=== PATIENT | male | born 1935 | race Caucasian/White ===

== ENCOUNTER 2017-06-13 12:31 | Outpatient (CLI) | payer MEDICARE, BC | END 2017-06-13 12:32 | disposition home or self-care (01) | LOC: DI 12:31 | PROVIDERS: ATTEND Internal Medicine Cardiovascular Disease | DX: R01.1 Cardiac murmur, unspecified (principal); I20.9 Angina pectoris, unspecified; I35.0 Nonrheumatic aortic (valve) stenosis | CPT/HCPCS: 93306 ==

== ENCOUNTER 2017-10-09 07:06 | Day surgery (SDC) | payer MEDICARE, BC ==
[2017-10-09] MEDS ORDERED: ceFAZolin 2 GM/50 ML 2 GM/50 ML BAG IV ONE (07:29)
[2017-10-09] MEDS ORDERED: LACTATED RINGERS 1,000 ML IV ONE ×2 (07:53→09:30)
[2017-10-09] MEDS ORDERED: BUPIVACAINE 0.5% PF 30 ML VIAL ONE (08:14)
[2017-10-09] MEDS ORDERED: BUPIVACAINE 0.5% PF 30 ML VIAL SUBQ ONE (09:13)
[2017-10-09] MEDS ORDERED: MIDAZOLAM 2 MG/2 ML VIAL IVP ONE (09:24)
[2017-10-09] MEDS ORDERED: PROPOFOL 200 MG/20 ML VIAL IVP ONE (09:24)
[2017-10-09] MEDS ORDERED: ONDANSETRON 4 MG/2 ML VIAL IVP ONE (09:24)
[2017-10-09] MEDS ORDERED: KETOROLAC 30 MG/ML VIAL IVP ONE (09:24)
[2017-10-09] MEDS ORDERED: LIDOCAINE-MPF 2% 5 ML VIAL IM ONE (09:24)
[2017-10-09] MEDS ORDERED: ePHEDrine 50 MG/ML VIAL IVP ONE (09:24)
--- NOTE | 2017-10-09 10:24 | OPERATIVE REPORT ---
Operative Report - General Procedure Date: 10/09/17 Planned Procedure: RIGHT inguinal herniorrhaphy Pre-Op Diagnosis: RIGHT inguinal hernia Procedure Performed: RIGHT indirect inguinal herniorrhaphy with mesh Post Op Diagnosis: RIGHT indirect inguinal hernia - Procedure Note Primary Surgeon: Jemal Prieto MD Anesthesia Provider: Hansel Weston CRNA Anesthesia Technique: General LMA, Local (30 mL 1/2% marcaine) IV Fluids (mL): 800 Estimated Blood Loss (mL): 5 Complications: None. - Other Other Information/Narrative: OPERATIVE DESCRIPTION/REPORT: After verbal and written informed consent was obtained detailing the risks of infection, bleeding requiring transfusion with its risks, nerve injury, and , and after I met with the patient confirming the surgery and the site of the surgery and after initialing the site of the surgery with a surgical marker , the patient was brought to the operative suite and placed supine on the operating table. Great care was taken to avoid pressure points to prevent pressure necrosis or nerve injury. Monitoring devices were applied along with TEDs and pneumatic compressive stockings (to prevent DVT). The patient received preoperative antibiotics for surgical prophylaxis. Hansel Weston sedated and anesthetized the patient for the entire procedure. The patient was prepped and draped in the usual sterile manner. With the patient draped my initials were clearly visible. A "time in" then confirmed that the patient was identified with 3 identifiers (name, date and medical record number), the history and physical was in the chart, the signed consent confirming the procedure was in the chart, the patient was in the correct position, the aforementioned prophylactic measures were in place or given, we had the correct personnel and equipment to complete the procedure and that anesthesia, surgery and nursing were given an opportunity to express any concerns. With the agreement of everyone in the room, we proceeded with the operation. A standard inguinal incision was made and dissection was carried down to the external oblique aponeurosis using a combination of Metzenbaum scissors and Bovie electrocautery. The external oblique aponeurosis was cleared of overlying adherent tissue, and the external ring was delineated. The external oblique was the incised with a scalpel and this incision was carried out to the external ring using Metzenbaum scissors. Having exposed the inguinal canal, the cord structures were from the canal using blunt dissection, and a Iker drain was placed around the cord structures at the level of the pubic tubercle. This Iker drain was then used to retract the cord structures as needed. Adherent cremasteric muscle was dissected free from the cord using Bovie electrocautery. The cord was then explored using a combination of sharp and blunt dissection, and the sac was found anteromedially to the cord structures. The sac was dissected free from the cord structures using a combination of blunt dissection and Bovie electrocautery. Once preperitoneal fat was encountered, the dissection stopped and the sac was high ligated with a 2-0 PDS, transected, the stump cauterized and allowed to retract back into the abdominal cavity and a largeCovidien plug (Ref# [id number], Lot#[id number], use date 2022-07-11) inserted into the internal ring. The plug was secured to the internal ring by two interrupted 2-0 PDS sutures. The Bard Perfix enlay patch was then placed on the floor of the inguinal canal and secured in place using interrupted 0 PDS sutures to the conjoined tendon superiorly, pubic tubercle medially, and shelving edge inferiorly. By reinforcing the floor with the enlay patch, a new internal ring was thus formed. The Howe drain was removed. The wound was then irrigated using sterile saline, and hemostasis was obtained using Bovie electrocautery. The incision in the external oblique was approximated using a 3-0 Vicryl in a running fashion , thus reforming the external ring. The fascia and skin was then injected with the 1/2% marcaine for penitentiary pain control. The skin incision was approximated with 4-0 Monocryl in a subcuticular fashion. The skin was prepped with benzoin and steristrips were applied. At this point a time out was performed that confirmed that all the counts were correct, the procedure that was performed, the blood loss, the IV fluids administered, and the patients condition. A dressing was then applied. Gentle downward traction ensured that the testes were well seated in the scrotum. Having tolerated the procedure well , the patient was taken to short stay in good and stable condition.
[2017-10-09] MEDS ORDERED: oxyCOD/ACETAMIN 5 MG/325 MG TABLET PO ONE (11:28)
[2017-10-09 12:11] VITALS: BP 119/90
== END 2017-10-09 07:07 | disposition home or self-care (01) ==
LOC: SDS 07:06
PROVIDERS: ATTEND Surgery
PROC: 0YU50JZ Supplement Right Inguinal Region with Synthetic Substitute, Open Approach (ICD-10-PCS; principal; 2017-10-09 08:30)
DX: K40.90 Unilateral inguinal hernia, without obstruction or gangrene, not specified as recurrent (principal); I10 Essential (primary) hypertension; E78.5 Hyperlipidemia, unspecified; J43.9 Emphysema, unspecified; F17.210 Nicotine dependence, cigarettes, uncomplicated; Z79.82 Long term (current) use of aspirin
CPT/HCPCS: 49505; A9270; C1781; J0690; J7120

== ENCOUNTER 2018-07-19 13:45 | Outpatient (CLI) | payer MEDICARE, BC ==
[2018-07-19] MEDS ORDERED: IOVERSOL 320 100 ML VIAL IVP ONE ×2 (13:56→19:21)
[2018-07-19] MEDS ORDERED: IOVERSOL 320 50 ML VIAL ONE (13:56)
[2018-07-19] MEDS ORDERED: IOVERSOL 320 50 ML VIAL PO ONE (19:21)
--- NOTE | 2018-07-20 08:08 | CT Report ---
Reason: CANCER OF GLANS PENIS Procedure Date: 07/19/2018 Accession Number: [id number] / [id number] Procedure: CT - Abdomen/Pelvis W/ CPT Code: FULL RESULT: EXAM: CT ABDOMEN AND PELVIS EXAM DATE: 07/19/2018 03:26 PM. CLINICAL HISTORY: Penile cancer of glans COMPARISONS: CT 11/17/2010. TECHNIQUE: Routine helical CT imaging was performed through the abdomen and pelvis. IV contrast: opti 320 100mL. Enteric contrast: No. Reconstructions: Coronal and sagittal. In accordance with CT protocol optimization, one or more of the following dose reduction techniques were utilized for this exam: automated exposure control, adjustment of mA and/or KV based on patient size, or use of iterative reconstructive technique. FINDINGS: Lung Bases: Pleural and parenchymal scarring with subsegmental left lower lobe posterior medial atelectasis. No pleural effusion. No lung nodules. A few small cystic emphysematous spaces. Heart size upper limits normal with calcified atherosclerosis. Right anterior cardiophrenic lymph node 8 x 5 mm series 3 image 12, slightly increased previously 6 x 4 mm. No pathologic sized haydee enlargement. Liver: Small stable low-attenuation foci again seen in the liver including 5 lateral subcapsular 8 mm low-attenuation focus series 3 image 25, unchanged. No new focus or finding suspicious for interval metastasis. Otherwise unremarkable. Gallbladder/Bile Ducts: Partially contracted gallbladder. Otherwise unremarkable. Bile duct is nondilated. Spleen: Punctate calcifications. Otherwise unremarkable Pancreas: Normal. Adrenal Glands: Unremarkable Kidneys: Bilateral kidney cysts, largest on the left again seen. Single largest left cyst within partial rim calcification measures 7.5 cm diameter series 3 image 42. This is decreased in size previously measuring up to 9.5 cm diameter. No complex cystic mass suspicious for neoplasm. No solid mass, stone or hydronephrosis. Otherwise unremarkable. Ureters are unremarkable. Peritoneal Cavity/Bowel: Normal. No free fluid, free air or adenopathy. No masses or acute inflammatory process. Pelvic Organs: Urinary bladder, prostate and seminal vesicles are unremarkable. No adenopathy. No free fluid. No additional mass. Vasculature: Calcified atherosclerosis. 5 cm long segment of fusiform infrarenal abdominal aortic aneurysm measuring 4 x 4 cm diameter. Aortic caliber at the bifurcation 2.4 x 2.5 cm. No additional aneurysm. No occlusion. Otherwise unremarkable. Bones: Mild generalized leftward convex curve in the thoracolumbar spine with spondylotic changes. No bone lesions suspicious for malignancy. No acute abnormality. Other: Small fat-containing left inguinal hernia. No inguinal adenopathy. No additional mass. Visualized portion of the penis appears unremarkable. IMPRESSION: 1. No acute abnormality seen on CT scan of abdomen and pelvis. No significant interval change compared to prior study 11/17/2010. No evidence for interval metastasis. 2. Infrarenal abdominal aortic aneurysm 4 cm diameter. No evidence for leak or rupture. 3. Kidney cysts and probable stable liver cysts. 4. Tiny fat-containing left inguinal hernia. 5. Examination otherwise as detailed above. RADIA
== END 2018-07-19 13:46 | disposition home or self-care (01) ==
LOC: DI 13:45
PROVIDERS: ATTEND Urology
DX: C60.1 Malignant neoplasm of glans penis (principal); I71.4 Abdominal aortic aneurysm, without rupture; Q61.02 Congenital multiple renal cysts; K40.90 Unilateral inguinal hernia, without obstruction or gangrene, not specified as recurrent
CPT/HCPCS: 74177; Q9967

== ENCOUNTER 2018-08-16 08:52 | Outpatient (CLI) | payer MEDICARE, BC | END 2018-08-16 08:53 | disposition home or self-care (01) | LOC: DI 08:52 | PROVIDERS: ATTEND Internal Medicine Cardiovascular Disease | DX: I35.0 Nonrheumatic aortic (valve) stenosis (principal); I25.2 Old myocardial infarction; I73.9 Peripheral vascular disease, unspecified; I51.7 Cardiomegaly | CPT/HCPCS: 93306 ==

== ENCOUNTER 2020-02-07 09:02 | Outpatient (CLI) | payer MEDICARE, BC | END 2020-02-07 09:03 | disposition home or self-care (01) | LOC: RT 09:02 | PROVIDERS: ATTEND Family Medicine | DX: R05 Cough (principal) | CPT/HCPCS: 94010 ==

== ENCOUNTER 2020-03-04 11:16 | Outpatient (CLI) | payer MEDICARE, BC ==
[2020-03-04 11:41] LABS: CALCIUM 9.4 mg/dL (8.5-10.3); CREATININE 1.1 mg/dL (0.6-1.2)
[2020-03-04] MEDS ORDERED: IOVERSOL 320 100 ML VIAL IVP ONE ×2 (11:56→13:41)
--- NOTE | 2020-03-04 14:11 | CT Report ---
PROCEDURE: CHEST W INDICATIONS: RT LUNG OPACITY ON 02/06 CXR CONTRAST: IV CONTRAST: Optiray 320 ml: 100 PO CONTRAST: *NO PO CONTRAST TECHNIQUE: After the administration of intravenous contrast, 5 mm thick sections acquired from the pulmonary api herminio to the posterior costophrenic angles. 7 mm thick coronal MIP reformats were acquired. For radia tion dose reduction, the following was used: automated exposure control, adjustment of mA and/or kV according to patient size. COMPARISON: Chest 2 views dated 02/07/2020. FINDINGS: Image quality: Excellent. Lungs and pleura: Severe biapical centrilobular emphysema, right greater than left. Spiculated pleura l-based density centered in the lingula, adjacent to the peripheral pleura and major fissure, possibl y representing rounded atelectasis versus spiculated bronchogenic carcinoma. It measures 1.6 cm. Refe rence image 174/4 (axial) and image 12/7 (sagittal reformats). No pleural effusions or pneumothorax. Central and peripheral airways are patent and normal in caliber. Mediastinum: Heart size is normal. No pericardial effusion. Dense coronary artery calcifications. N o mediastinal or hilar adenopathy by size criteria. Shotty mediastinal lymph nodes. Thoracic aorta a nd central pulmonary arteries are normal in size. Esophagus is normal in caliber. No hiatal hernia. Bones and chest wall: No suspicious bony lesions. No vertebral body compression fractures. No axil maryana or supraclavicular adenopathy by size criteria. Thyroid gland is unremarkable as visualized. Abdomen: Visualized upper abdominal solid organs appear normal. Upper abdominal bowel loops are nor mal in caliber. IMPRESSION: 1. Severe biapical centrilobular emphysema. 2. 1.6 cm maximum diameter spiculated pleural-based left lung density. Consider development of rounde d atelectasis versus spiculated bronchogenic carcinoma. Comment: Recommend further workup with PET/CT to differentiate between rounded atelectasis and malign elfego. Reviewed by: Sarabjit Nye MD on 03/04/2020 2:10 PM PDT Approved by: Sarabjit Nye MD on 03/04/2020 2:10 PM PDT Station ID: [id number]
== END 2020-03-04 11:17 | disposition home or self-care (01) ==
LOC: LAB 11:16 → DI 11:17
PROVIDERS: ATTEND Physician Assistant Medical
DX: J98.4 Other disorders of lung (principal); J43.2 Centrilobular emphysema
CPT/HCPCS: 36415; 71260; 80048; Q9967

== ENCOUNTER 2021-07-14 10:34 | Outpatient (CLI) | payer MEDICARE, BC | END 2021-07-14 10:35 | disposition critical access hospital (66) | LOC: EMS 10:34 | DX: R55 Syncope and collapse (principal); R53.1 Weakness; R42 Dizziness and giddiness; R11.0 Nausea | CPT/HCPCS: A0425; A0427 ==

== ENCOUNTER 2021-07-14 10:49 | Emergency (ER) | payer MEDICARE, BC ==
--- NOTE | 2021-07-14 11:45 | ED Physician Documentation ---
History of Present Illness - Stated complaint Stated Complaint: NEAR SYNCOPE - Chief complaint Chief Complaint: Neuro - Additonal information Additional information: 86-year-old male presents emergency department for evaluation of a near syncopal episode. He was out to [facility] with friends and suddenly began to feel nauseated and lightheaded. He placed his head down on the table. EMS was summoned. He is described as pale and diaphoretic at the scene. He did not have a lapse in consciousness. For EMS he was noted to be mildly orthostatic with a change in heart rate of 25 points with position change. His blood glucose was normal. Patient reports a similar event last week in which he got up in the middle of the night to use the restroom. He began to feel suddenly faint and lightheaded. He sat down before he could pass out. He denies having any sensation of tunnel vision or loss of vision during these episodes. Patient's past medical history is most significant for coronary artery disease, hypertension as well as aortic valve replacement. He had 3 stents placed at [facility] in the spring 2020. This was followed by a bovine valve replacement. Patient takes plavix and asa; denies novel antic oagulant use He denies any recent cough, cold, congestion, fevers. He denies that he was having any chest pain or shortness of air prior to this event. No recent melena or abdominal pain. No history of presyncope or syncope in the past. Patient is not vaccinated for COVID 19 meds: asa 81mg qd atorvastatin 80 mg qd flomax 0.4mg qd plavic 75 mg qd metoprolol 25 mg qd losartan 25 mg qd protonix 40 mg qd Review of Systems Constitutional: denies: Fever, Chills Eyes: denies: Loss of vision Ears: reports: Reviewed and negative Nose: reports: Reviewed and negative Throat: reports: Reviewed and negative Cardiac: denies: Chest pain / pressure, Palpitations, Pedal edema, Calf pain Respiratory: denies: Dyspnea, Cough GI: reports: Nausea. denies: Abdominal Pain, Vomiting, Constipation, Diarrhea : reports: Reviewed and negative Skin: reports: Reviewed and negative Musculoskeletal: reports: Reviewed and negative Neurologic: reports: Near syncope. denies: Generalized weakness, Focal weakness, Numbness, Syncope, Confused, Altered mental status, Headache, Head injury, LOC Psychiatric: reports: Reviewed and negative PD PAST MEDICAL HISTORY - Past Medical History Cardiovascular: Hypertension, High cholesterol, Coronary artery disease, [place], Murmur Respiratory: Emphysema, Shortness of breath, Other Endocrine/Autoimmune: None GI: None : None HEENT: None Psych: None Musculoskeletal: Other Derm: None - Past Surgical History Ortho: Knee replacement, Shoulder arthroplasty, Arthroscopic surgery, Spine surgery, Other Cardiovascular: Coronary stent, Cardiac catheterization HEENT: Cataracts, Other Derm: Skin cancer surgery - Present Medications Home Medications: Ambulatory Orders Medication Instructions Recorded Confirmed Aspirin [Adult Aspirin] 81 mg PO DAILY 10/09/17 10/09/17 Atorvastatin [Lipitor] 20 mg PO DAILY 10/09/17 10/09/17 Docusate Sodium [Dulcolax Stool 40 mg PO BID 10/09/17 10/09/17 Softener] Varenicline Tartrate [Chantix] 1 mg PO BID 10/09/17 10/09/17 predniSONE [Prednisone] 5 mg PO DAILY 10/09/17 10/09/17 - Allergies Allergies/Adverse Reactions: Allergies Allergy/AdvReac Type Severity Reaction Status Date / Time ciprofloxacin [From Cipro] Allergy Rash Verified 07/14/21 11:06 PD ED PE EXPANDED - General General: Alert, No acute distress, Well developed/nourished - Cardiac Cardiac: Regular Rate, Murmur Present, Radial strong equal, Pedal strong equal, Cap refill < 2 sec - Respiratory Respiratory: Clear to ausultation leon. No: Distress, Labored - Abdomen Abdomen: Normal Bowel sounds. No: Tender to palpation - Derm Derm: Normal color, Warm and dry. No: Rash - Extremities Extremities: Normal. No: Deformity, Tenderness - Neuro Neuro: Alert and Oriented X 3, CNII-XII intact - GCS Eye Opening: Spontaneous Motor: Obeys Commands Verbal: Oriented Total: 15 Results - Vitals Vitals: Vital Signs - 24 hr 07/14/21 07/14/21 11:01 12:19 Temperature 36.6 C Heart Rate 59 L 58 L Heart Rate [ 65 Sitting] Heart Rate [ 66 Standing] Heart Rate [ 60 Supine] Respiratory 13 17 Rate Blood Pressure 129/68 114/62 Blood Pressure 128/70 [Sitting] Blood Pressure 114/62 [Standing] Blood Pressure 129/72 [Supine] O2 Saturation 100 100 Oxygen O2 Source Room air - EKG (time done) 1116 Rate: Rate (enter#) (60) Rhythm: NSR [place]: LAD, Other (IVCD) Intervals: Prolonged NH, Prolonged QT QRS: LVH Ischemia: Other (ST sec LVH) Compare to prior EKG: Old EKG unavailable Computer interpretation: Agree with computer - Labs Labs: Laboratory Tests 07/14/21 07/14/21 07/14/21 11:40 11:40 11:40 WBC 6.1 RBC 3.97 L Hgb 12.9 L Hct 38.9 L MCV 98.0 H MCH 32.5 H MCHC 33.2 RDW 12.9 Plt Count 148 MPV 9.4 Neut # (Auto) 4.8 Lymph # (Auto) 0.7 L [place] # (Auto) 0.4 Eos # (Auto) 0.1 Baso # (Auto) 0.0 Absolute Nucleated RBC 0.00 Nucleated RBC % 0.0 PT INR Sodium 136 Potassium 4.9 Chloride 103 Carbon Dioxide 25 Anion Gap 8.0 BUN 36 H Creatinine 1.5 H Estimated GFR (MDRD) 44 L Glucose 95 Calcium 8.5 Phosphorus Magnesium Total Bilirubin 0.9 AST 16 ALT 17 Alkaline Phosphatase 102 Troponin I High Sens 10.2 B-Natriuretic Peptide Total Protein 6.5 L Albumin 3.8 Globulin 2.7 Albumin/Globulin Ratio 1.4 Lipase 28 07/14/21 07/14/21 07/14/21 11:40 11:40 11:40 WBC RBC Hgb Hct MCV MCH MCHC RDW Plt Count MPV Neut # (Auto) Lymph # (Auto) [place] # (Auto) Eos # (Auto) Baso # (Auto) Absolute Nucleated RBC Nucleated RBC % PT 12.2 INR 1.1 Sodium Potassium Chloride Carbon Dioxide Anion Gap BUN Creatinine Estimated GFR (MDRD) Glucose Calcium Phosphorus 2.8 Magnesium 2.2 Total Bilirubin AST ALT Alkaline Phosphatase Troponin I High Sens B-Natriuretic Peptide 119 H Total Protein Albumin Globulin Albumin/Globulin Ratio Lipase - Rads (name of study) CXR Radiology: Final report received (no acute cardiopulmonary pathology) PD MEDICAL DECISION MAKING - ED course Complexity details: reviewed results, re-evaluated patient, considered differential, d/w patient ED course: 86-year-old male presents emergency department for evaluation of a near syncopal episode that occurred this morning while eating brunch. Developed sudden onset nausea and felt lightheaded and faint. Put his head on the table. EMS arrived found him pale and diaphoretic. Here in the emergency department screening labs were obtained. He is not anemic. His electrolytes were without acute worrisome findings though he is likely mildly dehydrated with a BUN of 36 and creatinine 1.2. He was repleted with 1 L of IV fluids. EKG is nonischemic though he does have LAD and intervention IVCD. High-sensiti vity troponin was negative. BNP not elevated. Patient did have orthostatic vital signs obtained here which were negative. While here in the emergency department he has been without ectopy and feels improved. I did offer the patient observation admission for near syncope and to obtain an echocardiogram but he declined this. Thus I did speak with his radio communications mechanician Dr. Tavarez who will arrange for f/u with hsi office next wek planning for echo and event monitor. Emergent return precautions discussed Departure - Departure Disposition: 01 Home, Self Care Clinical Impression: Near syncope Condition: Stable Record reviewed to determine appropriate education?: Yes Instructions: ED Near Syncope Unkn Follow-Up: Cipriano Kenyon MD [Provider Admit Priv/Credential] - Comments: Vic worrell were seen in the emergency department today for a near fainting episode. This is your second 1 in a week. Your screening chest x-ray and labs did not reveal any obvious worrisome findings. Your blood pressures and heart rate were the same and all of your tested positions. It is important that you continue to follow-up with Dr. Kenyon as an outpatient. His office will be calling you. They are planning to have you come into the office to get an event monitor placed as well as obtain an echocardiogram. If at any point you develop chest pain, have fevers, have worsening symptoms you are to return immediately to the ER for a second evaluation.
[2021-07-14 11:46] LABS: BASOPHILS % (AUTO) 0.3 %; EOSINOPHILS # (AUTO) 0.1 10^3/uL (0.0-0.7); EOSINOPHILS % (AUTO) 2.3 %; HCT - HEMATOCRIT 38.9 % (42.0-52.0); HGB - HEMOGLOBIN 12.9 g/dL (14.0-18.0); LYMPHOCYTES # (AUTO) 0.7 10^3/uL (1.5-3.5); LYMPHOCYTES % (AUTO) 11.8 %; MEAN CORPUSCULAR HEMOGLOBIN 32.5 pg (27.0-31.0); MEAN CORPUSCULAR HGB CONC 33.2 g/dL (32.0-36.0); MEAN PLATELET VOLUME 9.4 fL (7.4-11.4); MONOCYTES # (AUTO) 0.4 10^3/uL (0.0-1.0); MONOCYTES % (AUTO) 6.9 %; NEUTROPHILS # (AUTO) 4.8 10^3/uL (1.5-6.6); NEUTROPHILS % (AUTO) 77.9 %; PLT - PLATELET COUNT 148 10^3/uL (130-450); RED BLOOD COUNT 3.97 10^6/uL (4.70-6.10); RED CELL DISTRIBUTION WIDTH 12.9 % (12.0-15.0); WHITE BLOOD COUNT 6.1 x10^3/uL (4.8-10.8)
[2021-07-14 11:54] LABS: INR 1.1 (0.8-1.2); PT - PROTHROMBIN TIME 12.2 secs (9.9-12.6)
[2021-07-14 12:02] LABS: ALBUMIN 3.8 g/dL (3.2-5.5); ALBUMIN/GLOBULIN RATIO 1.4 (1.0-2.2); BILIRUBIN,TOTAL 0.9 mg/dL (0.2-1.0); CALCIUM 8.5 mg/dL (8.5-10.3); CREATININE 1.5 mg/dL (0.6-1.2); POTASSIUM 4.9 mmol/L (3.5-5.0); TOTAL PROTEIN 6.5 g/dL (6.7-8.2)
[2021-07-14] MEDS ORDERED: SODIUM CHLORIDE 0.9% 1,000 ML IV STA (12:03)
--- NOTE | 2021-07-14 12:05 | XRAY Report ---
PROCEDURE: Chest 1 View X-Ray INDICATIONS: Chest Pain TECHNIQUE: One view of the chest was acquired. COMPARISON: 02/07/2020 FINDINGS: Surgical changes and devices: None. Lungs and pleura: No pleural effusions or pneumothorax. Lungs are clear. Mediastinum: Mediastinal contours appear normal. Heart size is normal. Bones and chest wall: No suspicious bony lesions. Overlying soft tissues appear unremarkable. IMPRESSION: No acute cardiopulmonary pathology. Reviewed by: Aime George MD on 07/14/2021 12:04 PM PST Approved by: Aime George MD on 07/14/2021 12:04 PM [facility] Station ID: [id number]
[2021-07-14 12:14] LABS: MAGNESIUM 2.2 mg/dL (1.7-2.8); PHOSPHORUS 2.8 mg/dL (2.5-4.6)
[2021-07-14 12:22] VITALS: BP 114/62
== END 2021-07-14 14:07 | disposition home or self-care (01) ==
LOC: EDUNIT# → ED 10:49
DX: R55 Syncope and collapse (principal); Z95.5 Presence of coronary angioplasty implant and graft; I10 Essential (primary) hypertension; Z95.2 Presence of prosthetic heart valve
CPT/HCPCS: 36415; 80053; 83690; 83735; 83880; 84100; 84484; 85025; 85610; 93005; 96360; 96361; 99284

== ENCOUNTER 2021-08-19 11:39 | Outpatient (CLI) | payer MEDICARE, BC | END 2021-08-19 11:40 | disposition home or self-care (01) | LOC: DI 11:39 | PROVIDERS: ATTEND Internal Medicine Cardiovascular Disease | DX: R55 Syncope and collapse (principal); Z95.2 Presence of prosthetic heart valve; I51.7 Cardiomegaly | CPT/HCPCS: 93306 ==

== ENCOUNTER 2022-07-27 09:28 | Outpatient (CLI) | payer MEDICARE, BC | END 2022-07-27 09:29 | disposition home or self-care (01) | LOC: LAB 09:28 | PROVIDERS: ATTEND Surgery | DX: Z01.812 Encounter for preprocedural laboratory examination (principal); K40.90 Unilateral inguinal hernia, without obstruction or gangrene, not specified as recurrent; Z20.822 Contact with and (suspected) exposure to COVID-19 ==

== ENCOUNTER 2022-07-28 08:50 | Day surgery (SDC) | payer MEDICARE, BC ==
[~2022-07-28 08:50] MED LIST: CEFAZOLIN 2G/50ML 0.9% NS 2 GM/50 ML BAG IV ONE
[2022-07-28] MEDS ORDERED: LACTATED RINGERS 1,000 ML IV ONE (08:52)
[2022-07-28] MEDS ORDERED: LIDOCAINE-MPF 1% 30 ML VIAL ONE (09:00)
[2022-07-28] MEDS ORDERED: BUPIVACAINE 0.5% PF 30 ML VIAL ONE (09:50)
[2022-07-28] MEDS ORDERED: BUPIVACAINE 0.5% PF 30 ML VIAL INFIL ONE (09:53)
--- NOTE | 2022-07-28 10:07 | ANESTHESIA ---
Pre-Anesthesia VS, & Labs - Diagnosis left inguinal hernia - Procedure left inguinal hernia repair Vital Signs: Temp Pulse Resp BP Pulse Ox O2 Flow Rate 37 C 93 18 121/72 94 07/28/22 09:03 07/28/22 09:03 07/28/22 09:03 07/28/22 09:03 07/28/22 09:03 Height: 6 ft Weight (kg): 80 kg Body Mass Index: 23.9 BMI Classification: Normal - NPO >8 hours Home Medications and Allergies Home Medications: Ambulatory Orders Losartan Potassium 25 mg PO DAILY 07/27/22 Pantoprazole [Protonix] 40 mg PO DAILY 07/27/22 Tamsulosin HCl [Flomax] 0.4 mg PO DAILY 07/27/22 polyethylene glycoL 3350 [Miralax] 17 gm PO DAILY 07/27/22 Aspirin [Adult Aspirin] 81 mg PO DAILY 10/09/17 Atorvastatin [Lipitor] 20 mg PO DAILY 10/09/17 Losartan Potassium 25 mg PO DAILY 07/27/22 Pantoprazole [Protonix] 40 mg PO DAILY 07/27/22 Tamsulosin HCl [Flomax] 0.4 mg PO DAILY 07/27/22 polyethylene glycoL 3350 [Miralax] 17 gm PO DAILY 07/27/22 Allergies/Adverse Reactions: Allergies Allergy/AdvReac Type Severity Reaction Status Date / Time ciprofloxacin [From Cipro] Allergy Rash Verified 07/14/21 11:06 Anes History & Medical History - Anesthetic History Anesthesia Complications: reports: No previous complications - Medical History Cardiovascular: reports: Hypertension, High cholesterol, Coronary artery disease (stents), Peripheral Vascular Disease (AAA), [place], Murmur, Valve disorder (TVAR) Pulmonary: reports: Emphysema, Shortness of breath, Other Gastrointestinal: reports: None Urinary: reports: None Neuro: reports: None Musculoskeletal: reports: Osteoarthritis Endocrine/Autoimmune: reports: None Skin: reports: None Smoking Status: Current every day smoker (1 pack per day) Psychosocial: reports: No issues indicated History of Cancer?: No - Surgical History General: reports: Other Eyes Ears Nose Throat (EENT): reports: Cataracts, Other Cardiothoracic: reports: Coronary stent, Cardiac catheterization Orthopedic: reports: Knee replacement, Shoulder arthroplasty, Arthroscopic surgery, Spine surgery, Other Dermatologic: reports: Skin cancer surgery Exam General: Alert, Oriented x3, Cooperative, No acute distress Dental: WNL Mouth Openin Fingerbreadth Neck Mobility: Normal Mallampati classification: II Thyromental Distance: 4-6 cm Mental/Cognitive Status: Alert/Oriented X3, Normal for patient Plan Anesthesia Type: General Consent for Procedure(s) Verified and Reviewed: Yes Code Status: Attempt Resuscitation ASA classification: 3-Severe systemic disease Is this case an emergency?: No
[2022-07-28] MEDS ORDERED: fentaNYL 100 MCG/2 ML VIAL IVP PRN (10:11)
[2022-07-28] MEDS ORDERED: NALOXONE 0.4 MG/ML VIAL IVP PRN (10:11)
[2022-07-28] MEDS ORDERED: MORPHINE 2 MG/ML CARPUJECT IVP PRN (10:11)
[2022-07-28] MEDS ORDERED: ONDANSETRON 4 MG/2 ML VIAL IVP PRN ×2 (10:11→12:21)
[2022-07-28] MEDS ORDERED: HYDROmorphone 0.5 MG/0.5 ML SYRINGE IVP PRN ×2 (10:11→12:21)
[2022-07-28] MEDS ORDERED: ATROPINE ABBOJECT 1 MG/10 ML SYRINGE IVP PRN (10:11)
[2022-07-28] MEDS ORDERED: fentaNYL 100 MCG/2 ML VIAL ONE (10:19)
[2022-07-28] MEDS ORDERED: PROPOFOL 200 MG/20 ML VIAL IVP ONE (10:19)
[2022-07-28] MEDS ORDERED: LACTATED RINGERS 1,000 ML IV SCH (11:00)
[2022-07-28] MEDS ORDERED: DEXAMETHASONE 4 MG/ML VIAL ONE (12:05)
[2022-07-28] MEDS ORDERED: ONDANSETRON 4 MG/2 ML VIAL ONE ×2 (12:05→12:06)
[2022-07-28] MEDS ORDERED: HYDROmorphone 1 MG/ML CARPUJECT ONE (12:05)
[2022-07-28] MEDS ORDERED: LACTATED RINGERS 300 ML IV ONE (12:15)
--- NOTE | 2022-07-28 12:18 | OPERATIVE REPORT ---
Operative Report - General Procedure Date: 07/28/22 Planned Procedure: Recurrent left inguinal herniorrhaphy Pre-Op Diagnosis: Recurrent left inguinal hernia Procedure Performed: Recurrent left indirect inguinal herniorrhaphy and excision cord lipoma Post Op Diagnosis: Recurrence of left indirect inguinal hernia, cord lipoma - Procedure Note Primary Surgeon: Jemal Prieto MD Anesthesia Provider: Regino Blood CRNA Anesthesia Technique: General LMA, Local (30 mL of half percent Marcaine) IV Fluids (mL): 1,700 Estimated Blood Loss (mL): 5 Drain/Tube Type: Other (None.) Indications: Symptomatic recurrent left inguinal hernia Findings: Left indirect inguinal hernia with some scarring, large cord lipoma Complications: Noner. - Other Other Information/Narrative: After verbal and written informed consent was obtained detailing the operation, the alternatives the operation including no operation, risks of infection, bleeding requiring transfusion with its risks, nerve injury, and and after I met with the patient confirming the surgery and the site of surgery, the patient was brought to the operative suite and placed supine on the operating table. Great care was taken to avoid pressure points to prevent pressure necrosis or nerve injury. Monitoring devices were applied along with TEDs and pneumatic compression stockings (to prevent DVT). The patient received preoperative antibiotics for surgical prophylaxis. Regino Blood CRNA sedated and anesthetized the patient for the entire procedure. The patient was prepped and draped in the usual sterile manner. With the patient draped my initials were clearly visible. A "time in" then confirmed that the patient was identified with 3 identifiers (name, date, and medical record number), the history and physical was updated and in the chart, the signed consent confirming the procedure was in the chart, the patient was in the correct position, the aforementioned prophylactic measures were in place or given, we had the correct personnel and equipment to complete the procedure and that anesthesia and the surgical team were given an opportunity to express any concerns. With the agreement of everyone in the room we proceeded with the operation. A standard inguinal incision was made and dissection was carried down to the external oblique aponeurosis using a combination of Metzenbaum scissors and Bovie electrocautery. The external oblique aponeurosis was cleared of overlying adherent tissue, and the external ring was delineated. The external oblique was incised with a scalpel and this incision was carried down to the external ring using Metzenbaum scissors. Care was taken not to injure the ilioinguinal nerve. Having expose the inguinal canal, the cord structures were from the canal using blunt dissection and a Hebron drain was placed around the cord structures at the level of the pubic tubercle. This Hebron drain was then used to retract the cord structures as needed. Adherent cremasteric muscle was dissected free from the cord using Bovie electrocautery. The cord was then explored using a combination of sharp and blunt dissection, and an indirect sac was found. The sac was then dissected back to the internal ring and high ligated with a 3-0 Vicryl suture. This was then transected the stump cauterized and allowed to retract back into the abdomen. A PerFix plug (Reference #[id number], lot number [id number], use by 2026-11-05) was then inserted into the internal ring and secured to the edge of the internal ring using a 2-0 PDS. Dissection along the cord structures found a large cord lipoma that was dissected back to the internal ring, ligated with 3-0 Vicryl, transected, and the stump cauterized and allowed to retract back into the abdomen. The PerFix onlay patch was then secured to the pubic tubercle with a 2 0-PDS U stitch. The mesh was then secured to the conjoined tendon superiorly using interrupted 2-0 PDS sutures and secured to the shelving edge of Poupart's ligament inferiorly using interrupted 2-0 PDS sutures. The mesh was secured around the cord structures loosely with a 2-0 PDS suture thus creating a new internal ring. The Hebron drain was then removed. Meticulous hemostasis was obtained using Bovie electrocautery. The wound was then injected superficially and deep using 30 mL of half percent Marcaine. The incision the external oblique was approximated using 3-0 Vicryl in a running fashion thus reforming the external ring. The skin incision was approximated with 4-0 Monocryl in a subcuticular fashion. The skin was cleaned of its prep and Dermabond was applied. At this point a timeout was performed that confirmed that all counts were correct x2, the procedure that was performed, the blood loss, the IV fluids administered, the patient's condition, and any concerns of the operating team had. Having tolerated the procedure well, the patient was taken recovery room in good and stable condition. Gentle downward traction ensured the testes were well seated in the scrotum. The plan is for outpatient discharge when the patient is adequately recovered. CPT 91298 inguinal herniorrhaphy CPT 47094 excision cord lipoma This document was created in part using voice recognition technology. Because of the inherent limitations of the system, occasional same sounding word substitutions and grammatical errors do occur and persist despite proofreading. Please read this document for content.
[2022-07-28] MEDS ORDERED: HYDROcod/ACETAM 5/325 MG TABLET PO PRN (12:21)
--- NOTE | 2022-07-28 12:53 | ANESTHESIA POST OP EVALUATION ---
Anesthesia Post Eval - Post Anesthesia Eval Vitals: Last Vital Signs Temp 36.3 C L 07/28/22 12:34 Pulse 65 07/28/22 12:34 Resp 12 07/28/22 12:34 BP 134/69 H 07/28/22 12:34 Pulse Ox 94 07/28/22 12:34 O2 Flow Rate CV Function Including HR & BP: Stable Pain Control: Satisfactory Nausea & Vomiting: Negative Mental Status: Baseline Respiratory Status: Airway Patent Hydration Status: Satisfactory Anesthesia Complications: None
[2022-07-28 12:54] VITALS: BP 137/68
== END 2022-07-28 08:51 | disposition home or self-care (01) ==
LOC: SDS 08:50
PROVIDERS: ATTEND Surgery
PROC: 0VBG0ZZ Excision of Left Spermatic Cord, Open Approach (ICD-10-PCS; 2022-07-28)
PROC: 0YU60JZ Supplement Left Inguinal Region with Synthetic Substitute, Open Approach (ICD-10-PCS; principal; 2022-07-28 10:00)
DX: K40.91 Unilateral inguinal hernia, without obstruction or gangrene, recurrent (principal); D17.6 Benign lipomatous neoplasm of spermatic cord; J43.9 Emphysema, unspecified; I25.2 Old myocardial infarction; I25.10 Atherosclerotic heart disease of native coronary artery without angina pectoris; F17.210 Nicotine dependence, cigarettes, uncomplicated
CPT/HCPCS: 49520; 55520; C1781; J0690; J1170; J7120

== ENCOUNTER 2022-10-10 15:01 | Outpatient (CLI) | payer MEDICARE, BC | END 2022-10-10 15:02 | disposition home or self-care (01) | LOC: DI 15:01 | PROVIDERS: ATTEND Internal Medicine Cardiovascular Disease | DX: Z95.2 Presence of prosthetic heart valve (principal); I51.7 Cardiomegaly | CPT/HCPCS: 93306 ==